=== PATIENT | female | born 1955 | race Caucasian/White ===

== ENCOUNTER → 2021-09-13 10:54 | Outpatient (CLI) | payer OTHER, SELFPAY ==
--- NOTE | ~2021-09-13 | XR_ITS ---
EXAMINATION: XR hand RT min 3V DATE: 09/13/2021 11:23 INDICATION: Polyarthralgia. TECHNIQUE: 3 views of right hand were obtained. COMPARISON: None. FINDINGS: Bone alignment is normal. No fracture. There is severe osteoarthritis of first carpometacar pal joint and mild osteoarthritis of fourth metacarpophalangeal joint, second proximal interphalangea l joint, and second, third, and fifth distal interphalangeal joints. IMPRESSION: 1. Polyarticular osteoarthritis. Reviewed, dictated and finalized at location B. 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
--- NOTE | ~2021-09-13 | XR_ITS ---
EXAMINATION: XR foot RT min 3V DATE: 09/13/2021 11:23 INDICATION: Polyarthralgia. TECHNIQUE: 4 views of right foot were obtained. COMPARISON: None. FINDINGS: There is medial angulation of second proximal phalanx with respect to the metatarsal. There are likely changes of resection of head of second proximal phalanx. There is mild osteoarthritis of first metatarsophalangeal joint and some of the interphalangeal joints and midfoot joints. There is m oderate to severe osteoarthritis of first-third tarsometatarsal joints. There is an enthesophyte at p lantar aspect of calcaneal tuberosity. IMPRESSION: 1. Polyarticular osteoarthritis. Reviewed, dictated and finalized at location B. 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
--- NOTE | ~2021-09-13 | XR_ITS ---
EXAMINATION: XR foot LT min 3V DATE: 09/13/2021 11:23 INDICATION: Polyarthralgia. TECHNIQUE: 4 views of left foot were obtained. COMPARISON: None. FINDINGS: Bone alignment is normal. No fracture. There is mild osteoarthritis of first metatarsophala ngeal joint and some of the interphalangeal joints and midfoot joints. There is an enthesophyte at pl chaparro aspect of calcaneal tuberosity. IMPRESSION: 1. Mild polyarticular osteoarthritis. Reviewed, dictated and finalized at location B. ALION CHIEF
--- NOTE | ~2021-09-13 | XR_ITS ---
EXAMINATION: XR hand LT min 3V DATE: 09/13/2021 11:23 INDICATION: Polyarthralgia. TECHNIQUE: 3 views of left hand were obtained. COMPARISON: None. FINDINGS: Bone alignment is normal. No fracture. There is severe osteoarthritis of first carpometacar pal joint, mild osteoarthritis of first metacarpophalangeal joint, third and fourth proximal interpha langeal joints, and second-fourth distal interphalangeal joints, and moderate osteoarthritis of fifth distal interphalangeal joint. IMPRESSION: 1. Polyarticular osteoarthritis. Reviewed, dictated and finalized at location B. 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
== END ==
DX: R76.8 Other specified abnormal immunological findings in serum (principal); M19.072 Primary osteoarthritis, left ankle and foot; M19.071 Primary osteoarthritis, right ankle and foot; M19.042 Primary osteoarthritis, left hand; M19.041 Primary osteoarthritis, right hand; M18.0 Bilateral primary osteoarthritis of first carpometacarpal joints
CPT/HCPCS: 73130; 73630

== ENCOUNTER 2023-03-19 17:25 | Emergency (ER) | payer MEDICARE, SELFPAY ==
--- NOTE | ~2023-03-19 | XR_ITS ---
XR foot RT min 3V DATE: 03/19/2023 17:51 INDICATION: Pain at distal right metatarsals following injury yesterday TECHNIQUE: 4 views COMPARISON: None FINDINGS: Plantar calcaneal enthesopathy, without associated erosive change or periostitis. Prominent hypertrophic osteoarthritic change at the first tarsometatarsal joint. No recent fracture or dislocation is detected. IMPRESSION: No recent fracture or dislocation Prominent osteoarthritis at first tarsometatarsal joint Plantar calcaneal enthesopathy Reviewed, dictated and finalized at location A.
[2023-03-19 17:37] VITALS: BP 131/81; PULSE 79; RESP 16; TEMP 36.3; O2SAT 99
--- NOTE | 2023-03-19 18:05 | ED.LOWEXIN ---
HPI - Extremity Injury (Lower) General Chief Complaint: Extremity Injury, Lower Stated Complaint: Right Foot Pain Time Seen by Provider: 03/19/23 17:56 Source: patient and RN notes reviewed Mode of arrival: ambulatory Limitations: no limitations History of Present Illness HPI Narrative: Patient presents today complaining of right foot pain. She was walking barefoot in her kitchen and felt a pop in her foot yesterday. Reports some swelling and bruising. She has been applying ice and taking ibuprofen and Aleve with some relief. Denies numbness or tingling. History of rheumatoid arthritis and osteoarthritis. History of surgery to this foot around the 2nd toe. Related Data Home Medications Medication Instructions Recorded Confirmed lisinopril 10 1 tablet PO DAILY 03/19/23 03/19/23 mg-hydrochlorothiazide 12.5 mg tablet rosuvastatin 20 mg tablet 20 mg PO DAILY 03/19/23 03/19/23 Allergies Allergy/AdvReac Type Severity Reaction Status Date / Time Penicillins Allergy Severe ANPHYLACTIC Verified 03/19/23 17:27 REACTION Review of Systems Review of Systems: CONSTITUTIONAL: Denies body aches, fever, chills, or sweats. EYES: Denies visual changes, redness, or discharge. ENT: Denies rhinorrhea, congestion, sore throat, or otalgia. CARDIOVASCULAR: Denies chest pain, palpitations, or edema. RESPIRATORY: Denies cough or dyspnea. GASTROINTESTINAL: Denies abdominal pain, nausea, vomiting, or diarrhea. GENITOURINARY: Denies dysuria or hematuria. SKIN: Denies rash, itching, or wounds. MUSCULOSKELETAL: Denies back pain. + Right foot pain NEUROLOGIC: Denies headache, numbness, tingling, or weakness. PSYCH: Denies depression or anxiety. [facility] Past Medical History Medical History (Updated 03/19/23 @ 18:10 by Paulette Hu, [facility], ) Rheumatoid arthritis Comments At time of signature, I have reviewed and agree with nursing past medical, surgical, social and family history unless otherwise noted. Please see nursing chart for further information. There is no relevant family history pertinent to the presenting complaint Exam Narrative: GENERAL: Well-appearing, well-nourished, and in no acute distress. HEAD: Normocephalic, atraumatic. EYES: EOMI. No redness or drainage. Conjunctivae normal. ENT: Mucous membranes pink and moist. NECK: Normal AROM. CHEST: No respiratory distress. EXTREMITIES: right foot: Significant ecchymosis to the ball of the foot extending to the base of the 2nd and 3rd toes. Tenderness to palpation to these areas. Distal sensation intact in all 5 toes. Capillary refill normal. Pedal pulse normal. Surgical scars noted around the 2nd toe. Large callus noted to the ball of the foot. SKIN: Warm, dry, no rash. Capillary refill normal. Normal skin turgor. NEURO: No focal deficits. Alert and oriented x3. Gait steady. PSYCH: Normal affect. No signs of depression or anxiety. Course Course Level of Care: Express Care Visit Vital Signs Vital signs: Vital Signs Temperature 97.3 F L 03/19/23 17:37 Pulse Rate 79 03/19/23 17:37 Respiratory Rate 16 03/19/23 17:37 Blood Pressure 131/81 03/19/23 17:37 Pulse Oximetry 99 03/19/23 17:37 Oxygen Delivery Room Air 03/19/23 17:37 Temperature 97.3 F L 03/19/23 17:37 Pulse Rate 79 03/19/23 17:37 Respiratory Rate 16 03/19/23 17:37 Blood Pressure 131/81 03/19/23 17:37 Pulse Oximetry 99 03/19/23 17:37 Oxygen Delivery Room Air 03/19/23 17:37 Reviewed. Pt has been instructed to follow up with her PCP regarding her elevated blood pressure today. MDM - Extremity Injury (Lower) MDM Narrative Medical decision making narrative: x-ray negative for fracture. Will place in hard-soled shoe for comfort. No prescription medications indicated at this time. Anticipatory guidance given. Differential Diagnosis Differential diagnosis: Likely other ( Foot sprain, contusion, fracture) Imaging Data
== END 2023-03-19 18:19 | disposition home or self-care (01) ==
PROVIDERS: Emergency Provider Nurse Practitioner
DX: S99.921A Unspecified injury of right foot, initial encounter (principal); X58.XXXA Exposure to other specified factors, initial encounter; Y93.01 Activity, walking, marching and hiking; M06.9 Rheumatoid arthritis, unspecified; M19.90 Unspecified osteoarthritis, unspecified site
CPT/HCPCS: 73630; 99213; G0463